=== PATIENT | female | born 1995 | race Caucasian/White ===

== ENCOUNTER 2016-11-16 11:57 | Observation (INO) | payer BC ==
[2016-11-16] MEDS ORDERED: DUONEB 0.5-3 MG/3 ml Neb IH ONE ×3 (12:00→16:00)
--- NOTE | 2016-11-16 12:13 | ERPHSYRPT ---
- History of Present Illness Time Seen by Provider: 11/16/16 11:58 Source: patient Exam Limitations: no limitations Patient Subjective Stated Complaint: sob increased since last night Triage Nursing Assessment: pt states sob started last night and got worse today. [facility] her [facility] here. audible wheezes noted. resp slow and deep. 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 barky cough Timing/Duration: yesterday Activities at Onset: other (anxiety) Severity of Dyspnea-Max: moderate Severity of Dyspnea-Current: moderate Possible Cause: unknown cause Modifying Factors: Improves With: activity Associated Symptoms: chest pain/discomfort Allergies/Adverse Reactions: Sulfa (Sulfonamide Antibiotics) Allergy (Severe, Verified 11/16/16 12:03) Hives Home Medications: Albuterol Sulfate [Proair Hfa] 1 gm IH UD 06/07/16 [History] Hx Tetanus, Diphtheria Vaccination/Date Given: Yes Hx Influenza Vaccination/Date Given: No Hx Pneumococcal Vaccination/Date Given: No Immunizations Up to Date: Yes - Review of Systems Constitutional: No Symptoms Eyes: No Symptoms Ears, Nose, & Throat: No Symptoms Respiratory: Dyspnea, Wheezing Cardiac: Chest Pain Abdominal/Gastrointestinal: No Symptoms Genitourinary Symptoms: No Symptoms Musculoskeletal: No Symptoms Skin: No Symptoms Neurological: No Symptoms Psychological: No Symptoms Endocrine: No Symptoms Hematologic/Lymphatic: No Symptoms Immunological/Allergic: No Symptoms - Past Medical History Pertinent Past Medical History: Yes Respiratory History: Asthma - Past Surgical History Past Surgical History: Yes Other Surgical History: endoscopy. wisdom teeth - Social History Smoking Status: Never smoker Exposure to second hand smoke: Yes Drug Use: none Patient Lives Alone: No - Nursing Vital Signs Nursing Vital Signs: Initial Vital Signs Temperature 98.0 F Temperature Source Oral Pulse Rate 111 Respiratory Rate 18 Blood Pressure [Right Arm] 105/78 Pain Intensity 0 - Physical Exam General Appearance: moderate distress Eye Exam: eyes nml inspection Ears, Nose, Throat Exam: normal ENT inspection, normal pharynx Neck Exam: normal inspection, non-tender, supple, full range of motion Respiratory Exam: airway intact, wheezing Cardiovascular/Chest Exam: normal heart sounds, regular rate/rhythm, normal peripheral pulses Abdominal/Gastrointestinal Exam: soft, normal bowel sounds Extremity Exam: non-tender, normal range of motion, normal inspection, normal capillary refill Neurologic Exam: alert, oriented x 3, cooperative Skin Exam: normal color, warm, dry SpO2 Interpretation: normal SpO2: 95 Oxygen Delivery: Room Air - Course Nursing assessment & vital signs reviewed: Yes - Radiology Exams Chest X-ray Interpretation: Teleradiologist Report, Negative Ordered Tests: Active Orders 24 hr Category Date Time Status IV Insertion STAT Care 11/16/16 12:07 Active CHEST 1 VIEW (PORTABLE) Stat Exams 11/16/16 12:52 Completed ARTERIAL BLOOD GASES Stat Lab 11/16/16 12:34 Completed CBC W DIFF Stat Lab 11/16/16 12:50 Completed CMP Stat Lab 11/16/16 12:50 Completed D-DIMER QUANTITATION Stat Lab 11/16/16 12:50 Completed HCG,QUALITATIVE SERUM Stat Lab 11/16/16 13:26 Completed Respiratory Nebulizer STAT RT 11/16/16 12:25 Completed Medication Summary Discontinued Medications Generic Name Dose Route Start Last Admin Trade Name Freq PRN Reason Stop Dose Admin Albuterol/Ipratropium 3 ml 11/16/16 12:25 11/16/16 12:05 Duoneb 0.5-3 Mg/3 Ml Neb IH 11/16/16 12:26 3 ml STAT ONE Administration Lorazepam 1 mg 11/16/16 12:19 11/16/16 12:25 Ativan 2 Mg/1 Ml Vial IV 11/16/16 12:20 1 mg STAT ONE Administration Lorazepam Confirm 11/16/16 12:23 Ativan 2 Mg/1 Ml Vial Administered 11/16/16 12:24 Dose 2 mg .ROUTE .STK-MED ONE Methylprednisolone Sodium Succinate 125 mg 11/16/16 12:16 11/16/16 12:25 Solu-Medrol 125 Mg IV 11/16/16 12:17 125 mg STAT ONE Administration Methylprednisolone Sodium Succinate Confirm 11/16/16 12:23 Solu-Medrol 125 Mg Administered 11/16/16 12:24 Dose 125 mg .ROUTE .STK-MED ONE Lab/Rad Data: Laboratory Result Diagrams 11/16/16 12:50 11/16/16 12:50 Laboratory Results 11/16/16 11/16/16 11/16/16 Range/Units 12:50 12:50 12:50 WBC 13.7 H (4.0-10.5) K/mm3 RBC 4.88 (4.1-5.4) M/mm3 Hgb 13.9 (12.0-16.0) gm/dl Hct 41.9 (35-47) % MCV 85.9 (78-100) fl MCH 28.5 (26-32) pg MCHC 33.2 (32-36) g/dl RDW 12.8 (11.5-14.0) % Plt Count 324 (150-450) K/mm3 MPV 11.2 H (6-9.5) fl Gran % 69.2 H (36.0-66.0) % Lymphocytes % 21.1 L (24.0-44.0) % Monocytes % 4.4 (0.0-12.0) % Eosinophils % 5.2 H (0.00-5.0) % Basophils % 0.1 (0.0-0.4) % Basophils # 0.02 (0-0.4) D-Dimer < 215.00 (0.00-500.00) ng/mL Puncture Site pCO2 (35-45) mmHg pO2 (75-100) mmHg Base Excess (-2.0-2.0) O2 Saturation (94-100) g/dF ABG pH (7.35-7.45) ABG HCO3 (22-28) ABG O2 Sat (Measured) (95-100) % Jose Test A-a Gradient a/A Ratio Hemoglobin Carboxyhemoglobin (0.0-6.9) % THgb Methemoglobin (1.4-1.5) % Potassium 3.9 (3.5-5.1) Temperature C POC O2 Flow Rate % Sodium 141 (136-145) mEq/L Chloride 106 (98-107) mEq/L Carbon Dioxide 24.3 (21-32) mEq/L Anion Gap 14.4 (5-15) MEQ/L BUN 9 (9-20) mg/dL Creatinine 0.69 (0.55-1.30) mg/dl Estimated GFR > 60 ML/MIN Glucose 95 (70-110) MG/DL Calcium 8.9 (8.5-10.1) mg/dL Total Bilirubin 0.20 (0.2-1.0) mg/dL AST 14 L (15-37) U/L ALT 19 (12-78) U/L Alkaline Phosphatase 46 (46-116) U/L Serum Total Protein 7.3 (6.4-8.2) gm/dL Albumin 3.3 L (3.4-5.0) g/dL // Range/Units 12:34 WBC (4.0-10.5) K/mm3 RBC (4.1-5.4) M/mm3 Hgb (12.0-16.0) gm/dl Hct (35-47) % MCV (78-100) fl MCH (26-32) pg MCHC (32-36) g/dl RDW (11.5-14.0) % Plt Count (150-450) K/mm3 MPV (6-9.5) fl Gran % (36.0-66.0) % Lymphocytes % (24.0-44.0) % Monocytes % (0.0-12.0) % Eosinophils % (0.00-5.0) % Basophils % (0.0-0.4) % Basophils # (0-0.4) D-Dimer (0.00-500.00) ng/mL Puncture Site RIGHT RADIAL pCO2 36 (35-45) mmHg pO2 62 L (75-100) mmHg Base Excess -0.1 (-2.0-2.0) O2 Saturation 94.0 (94-100) g/dF ABG pH 7.43 (7.35-7.45) ABG HCO3 23.9 (22-28) ABG O2 Sat (Measured) 96.6 (95-100) % Jose Test YES A-a Gradient 43 a/A Ratio 0.59 Hemoglobin 12.9 Carboxyhemoglobin 1.8 (0.0-6.9) % THgb Methemoglobin 0.9 L (1.4-1.5) % Potassium 3.7 (3.5-5.1) Temperature 37.0 C POC O2 Flow Rate 21 % Sodium (136-145) mEq/L Chloride (98-107) mEq/L Carbon Dioxide (21-32) mEq/L Anion Gap (5-15) MEQ/L BUN (9-20) mg/dL Creatinine (0.55-1.30) mg/dl Estimated GFR ML/MIN Glucose (70-110) MG/DL Calcium (8.5-10.1) mg/dL Total Bilirubin (0.2-1.0) mg/dL AST (15-37) U/L ALT (12-78) U/L Alkaline Phosphatase (46-116) U/L Serum Total Protein (6.4-8.2) gm/dL Albumin (3.4-5.0) g/dL - Progress Progress: re-examined, unchanged Air Movement: good Progress Note: 11/16/16 12:16 Much improved after Duoneb Rx. Blood Culture(s) Obtained: No Antibiotics given: Yes, No Discussed with : [facility] Will see patient in: hospital (observation) Counseled pt/family regarding: diagnosis, need for follow-up, rad results - Departure Time of Disposition: 14:00 Departure Disposition: Observation Clinical Impression: Bronchospastic airway disease, Hypoxemia Condition: Stable Critical Care Time: Yes Critical Care Time(excluding separately billable procedures): 75-104 minutes Referrals: NICK SEGURA NP [Primary Care Provider] -
[2016-11-16] MEDS ORDERED: solu-MEDROL 125 MG IV ONE (12:16)
[2016-11-16] MEDS ORDERED: Ativan 2 MG/1 ML VIAL IV ONE (12:19)
[2016-11-16] MEDS ORDERED: solu-MEDROL 125 MG ONE (12:23)
[2016-11-16] MEDS ORDERED: Ativan 2 MG/1 ML VIAL ONE (12:23)
[2016-11-16 12:35] LABS: A-aADO2 43; ARTERIAL BLD GAS O2 SATURATION 96.6 % (95-100); ARTERIAL BLOOD GAS BASE EXCESS -0.1 (-2.0-2.0); ARTERIAL BLOOD GAS FIO2 21 %; ARTERIAL BLOOD GAS PO2 62 mmHg (75-100); ARTERIAL BLOOD GAS pH 7.43 (7.35-7.45)
[2016-11-16 12:36] LABS: ALLEN TEST OK? YES
[2016-11-16 13:16] LABS: BASOPHIL % 0.1 % (0.0-0.4); Eosinophil % 5.2 % (0.00-5.0); Granulocytes % 69.2 % (36.0-66.0); Lymphocytes % 21.1 % (24.0-44.0); Mean Cell Volume 85.9 fl (78-100); Mean Corpuscular Hemoglobin 28.5 pg (26-32); Mean Platelet Volume 11.2 fl (6-9.5); Monocytes % 4.4 % (0.0-12.0); Platelet Count 324 K/mm3 (150-450); Red Blood Count 4.88 M/mm3 (4.1-5.4); Red Cell Distribution Width 12.8 % (11.5-14.0); White Blood Count 13.7 K/mm3 (4.0-10.5)
--- NOTE | 2016-11-16 13:17 | XRAY ---
Indication: Short of breath. History of asthma. Comparison: June 07, 2016. Portable chest again demonstrates normal heart, lungs, and bony thorax.
[2016-11-16 13:53] LABS: ALBUMIN 3.3 g/dL (3.4-5.0); ALKALINE PHOSPHATASE 46 U/L (46-116); ANION GAP 14.4 MEQ/L (5-15); BLOOD UREA NITROGEN 9 mg/dL (9-20); CHLORIDE 106 mEq/L (98-107); Carbon Dioxide 24.3 mEq/L (21-32); Glucose 95 MG/DL (70-110); Potassium 3.9 mEq/L (3.5-5.1); SGOT/AST 14 U/L (15-37); SGPT/ALT 19 U/L (12-78); SODIUM 141 mEq/L (136-145); Total Protein 7.3 gm/dL (6.4-8.2)
[2016-11-16] MEDS ORDERED: ROCEPHIN 1 Gm-D5w 50 ml Bag** 1 G/50 ML IVPB IV STA (14:20)
[2016-11-16] MEDS: PROTONIX 40 MG IV IV SCH (16:03)
[2016-11-16] MEDS: DUONEB 0.5-3 MG/3 ml Neb IH SCH ×2 (16:03→19:43)
[2016-11-16] MEDS ORDERED: Ativan 2 MG/1 ML VIAL IV PRN (17:36)
--- NOTE | 2016-11-16 17:40 | PCM.HP ---
History of Present Illness - Chief Complaint Chief Complaint: SOB, hypoxemia History of Present Illness: is a 21 year old female with a history of asthma who reports to the ER with a 1 day history of cough, congestion and severe shortness of breath. She is very anxious and feels like she can't take a deep breath, she is requiring oxygen. She has a strong family history of thromboembolism. - Review of Systems Constitutional: No Symptoms Respiratory: Cough, Short Of Breath, Wheezing Cardiac: No Chest Pain, No Edema, No Syncope Skin: No Rash Psychological: Anxiety, No Drug Abuse, No Suicidal Ideations, No Homicidal Ideations, No Hallucinations All Other Systems: Reviewed and Negative Medications & Allergies Home Medications: Home Medication List Albuterol Sulfate [Proair Hfa] 1 gm IH UD 06/07/16 [History Confirmed 11/16/16] Budesonide 0.5 mg/2 ml [Pulmicort 0.5 mg/2 ml Respules] 1 neb IH BID 11/16 [History Confirmed 11/16/16] x-[id number]-Oig Estr/Ethin Estra [Seasonique 0.15-0.03-0.01 Tab] 1 tablet PO DAILY 11/16/16 [History Confirmed 11/16/16] Allergies/Adverse Reactions: Allergies Allergy/AdvReac Type Severity Reaction Status Date / Time Sulfa (Sulfonamide Allergy Severe Hives Verified 11/16/16 16:22 Antibiotics) - Past Medical History Past Medical History: Yes Respiratory History: Asthma - Female History Hx Last Menstrual Period: 06/12/11 Are you now?: No - Past Surgical History Past Surgical History: Yes Other Surgical History: endoscopy. wisdom teeth - Social History Smoking Status: Former smoker How long have you smoked: 2.5 years Exposure to second hand smoke: Yes Alcohol: None Drug Use: none - Physical Exam Vital Signs: Vital Signs - 24 hr Temp Pulse Resp BP Pulse Ox 11/16/16 16:51 118 H 20 95 11/16/16 15:41 98.1 F 114 H 20 117/77 94 L 11/16/16 14:16 95 11/16/16 13:27 111 H 18 105/78 98 11/16/16 12:25 120 H 18 97 11/16/16 11:58 98.0 F 133 H 20 136/79 95 Oxygen-Last 24 hours O2 Percentage 2 Liters = 28% O2 Percentage 2 Liters = 28% General Appearance: mild distress, anxiety Neurologic Exam: alert, oriented x 3, cooperative Respiratory Exam: wheezing, No respiratory distress, No accessory muscle use, No prolonged expirations, No crackles/rales, No rhonchi Cardiovascular Exam: regular rate/rhythm, normal heart sounds, normal peripheral pulses Gastrointestinal/Abdomen Exam: soft, normal bowel sounds, No tenderness, No mass Extremity Exam: normal inspection, normal range of motion, pelvis stable Skin Exam: normal color, warm, dry, No rash Results - Other Procedures and Tests Respiratory Therapy 11/16/16 19:00 Respiratory Nebulizer BID Respiratory Nebulizer Q4H Assessment/Plan (1) Status asthmaticus Current Visit: Yes Status: Acute Assessment & Plan: continue albuterol and IV solumedrol, was started on rocephin in ER Code(s): J45.902 - UNSPECIFIED ASTHMA WITH STATUS ASTHMATICUS (2) Anxiety Current Visit: Yes Status: Acute Assessment & Plan: prn ativan, patient reassured Code(s): F41.9 - ANXIETY DISORDER, UNSPECIFIED (3) Hypoxemia Current Visit: Yes Status: Acute Assessment & Plan: patient is saturating well on oxygen at this time, does not seem to have any indicators of impending respiratory failure but seems quite anxious at this time. d-dimer was negative Code(s): R09.02 - HYPOXEMIA
[2016-11-16] MEDS: solu-MEDROL 125 MG IV SCH ×2 (17:47→23:46)
[2016-11-16] MEDS: Tussionex Pennkinetic Susp PO PRN (18:26)
[2016-11-16] MEDS ORDERED: PULMICORT 0.5 MG/2 ML RESPULES IH ONE (19:42)
[2016-11-16] MEDS: PULMICORT 0.5 MG/2 ML RESPULES IH SCH (19:43)
[2016-11-16] MEDS: Ativan 2 MG/1 ML VIAL IV PRN (21:21)
[2016-11-16] MEDS: Atrovent 0.5MG NEBULE IH SCH (23:53)
[2016-11-16] MEDS: Xopenex 1.25 MG/0.5 ML UD NEBULE IH SCH (23:54)
[2016-11-17] MEDS: Ativan 2 MG/1 ML VIAL IV PRN ×4 (01:01→18:38)
[2016-11-17] MEDS: Atrovent 0.5MG NEBULE IH SCH ×6 (03:27→23:30)
[2016-11-17] MEDS: Xopenex 1.25 MG/0.5 ML UD NEBULE IH SCH ×6 (03:27→23:30)
[2016-11-17] MEDS: Tussionex Pennkinetic Susp PO PRN ×4 (03:45→18:38)
[2016-11-17 04:11] LABS: A-aADO2 165; ARTERIAL BLD GAS O2 SATURATION 98.8 % (95-100); ARTERIAL BLOOD GAS BASE EXCESS -5.7 (-2.0-2.0); ARTERIAL BLOOD GAS FIO2 40 %; ARTERIAL BLOOD GAS PO2 80 mmHg (75-100); ARTERIAL BLOOD GAS pH 7.37 (7.35-7.45)
[2016-11-17] MEDS ORDERED: solu-MEDROL 40 MG ONE (05:58)
[2016-11-17] MEDS ORDERED: solu-MEDROL 40 MG IV ONE (06:00)
[2016-11-17] MEDS: solu-MEDROL 40 MG IV SCH ×3 (06:29→18:38)
--- NOTE | 2016-11-17 07:26 | PCM.NOTE ---
Date and Time: 11/17/16723 Subjective Assessment: patient reports she is feeling better this morning than yesterday, she is still requiring 5L oxygen but she is playing games on her phone and speaking in full sentences. she is very concerned about a dermatology appt in [place] this am , has a persistent abdominal rash that has been treated multiple different ways for tinea Objective Exam General Appearance: no apparent distress, alert Respiratory Exam: wheezing Cardiovascular Exam: regular rate/rhythm, normal heart sounds Gastrointestinal/Abdomen Exam: soft, No tenderness, No mass Extremity Exam: normal inspection, normal range of motion OBJECTIVE DATA Vital Signs: Vital Signs - 24 hr Temp Pulse Resp BP Pulse Ox 11/17/16 04:26 98.2 F 130 H 22 121/60 95 11/17/16 03:27 132 H 30 H 87 L 11/17/16 03:00 110 H 21 106/63 93 L 11/17/16 00:55 160 H 24 124/52 91 L 11/17/16 00:00 98.0 F 121 H 21 124/52 93 L 11/16/16 23:53 125 H 23 94 L 11/16/16 20:00 98.2 F 149 H 23 117/77 92 L 11/16/16 19:43 127 H 23 92 L 11/16/16 16:51 118 H 20 95 11/16/16 15:41 98.1 F 114 H 20 117/77 94 L 11/16/16 14:16 95 11/16/16 13:27 111 H 18 105/78 98 11/16/16 12:25 120 H 18 97 11/16/16 11:58 98.0 F 133 H 20 136/79 95 Oxygen-Last 24 hours O2 Percentage 5 Liters = 40% O2 Percentage 5 Liters = 40% O2 Percentage 3 Liters = 32% O2 Percentage 3 Liters = 32% O2 Percentage 2 Liters = 28% O2 Percentage 2 Liters = 28% O2 Percentage 2 Liters = 28% Pain Assessment - Last Documented Pain Intensity 1 Pain Scale Used FLACC Intake and Output: Intake & Output 11/14/16 11/15/16 11/16/16 11/17/16 11:59 11:59 11:59 11:59 Intake Total 350 Output Total 250 Balance 100 Weight 54.567 kg Lab Results: Lab Results-Last 24 Hours 06/08/17 Range/Units 04:04 Puncture Site RIGHT BRACHIAL pCO2 32 L (35-45) mmHg pO2 80 (75-100) mmHg Base Excess -5.7 L (-2.0-2.0) O2 Saturation 96.2 (94-100) g/dF ABG pH 7.37 (7.35-7.45) ABG HCO3 18.5 L (22-28) ABG O2 Sat (Measured) 98.8 (95-100) % Jose Test NOT APPLICABLE A-a Gradient 165 a/A Ratio 0.33 Hemoglobin 13.9 Carboxyhemoglobin 1.6 (0.0-6.9) % THgb Methemoglobin 1.0 L (1.4-1.5) % Potassium 3.4 L (3.5-5.1) Temperature 37.0 C POC O2 Flow Rate 40 % Assessment/Plan (1) Status asthmaticus Current Visit: Yes Status: Acute Assessment & Plan: continue nebulizer treatments and IV steroids, will continue to treat anxiety and tachycardia with ativan prn. Dr Winters consulted Code(s): J45.902 - UNSPECIFIED ASTHMA WITH STATUS ASTHMATICUS (2) Anxiety Current Visit: Yes Status: Acute Code(s): F41.9 - ANXIETY DISORDER, UNSPECIFIED (3) Hypoxemia Current Visit: Yes Status: Acute Code(s): R09.02 - HYPOXEMIA
[2016-11-17] MEDS: PULMICORT 0.5 MG/2 ML RESPULES IH SCH (08:28)
[2016-11-17] MEDS: PROTONIX 40 MG IV IV SCH (10:58)
[2016-11-17] MEDS: ROCEPHIN 1 Gm-D5w 50 ml Bag** 1 G/50 ML IVPB IV SCH (10:58)
[2016-11-17] MEDS ORDERED: Sodium Chloride 3 ML UD NEBULES IH ONE (12:13)
--- NOTE | 2016-11-17 12:57 | CONS ---
CONSULT DATE: 11/17/16 REASON FOR CONSULTATION: Evaluation of shortness of breath, asthma exacerbation. HISTORY OF PRESENT ILLNESS: Ms. Pavon is a 21 y/o woman with history of bronchial asthma, suboptimally controlled, who reportedly was in usual state of health up until about 4 days ago. Patient reported that she started getting upper respiratory infection-like symptoms that increased bronchospasm. Patient was seen by Dr. Guillermo yesterday and was admitted for further care. I received a call this morning reporting patient was tachycardic and having significant difficulty in breathing. She is being treated with IV steroids along with bronchodilators. She was also noted to have tachycardia which has improved with heart rate down to 110 or so now. At the time of my evaluation, patient is awake, able to speak full sentences without any obvious respiratory distress. She reports being an asthmatic all her life. She uses albuterol and Pulmicort on a regular bases. She has however had flare-ups pretty frequently with last hospitalization in June of this year for asthma exacerbation. PAST MEDICAL HISTORY: Positive for bronchial asthma. Patient denies any cardiac problems or common medical problems. PERSONAL AND SOCIAL HISTORY: Patient is a nonsmoker. She works at the [employer]. ALLERGIES: SULFA. CURRENT MEDICATIONS: Home and current medications are reviewed. PAST SURGICAL HISTORY: No recent surgeries. PHYSICAL EXAMINATION: This is a young girl who appears comfortable. Vital signs are noted. HEENT: Normocephalic. Oral exam is unremarkable. CVS: 1st and 2nd heart sounds normal, regular rhythm with tachycardia. RESPIRATORY: Shows diminished breath sounds. Bilateral rhonchi are heard. ABDOMEN: Soft. EXTREMITIES: No edema is noted. The pH is 7.37, PCO2 32, and PO2 80. Sodium 141, potassium 3.9, chloride 106, bicarb 24, glucose 95, BUN 9, creatinine 0.7. D-dimer is negative. PO2 was 62 on room air. WBC 13.47, Hgb 13.9, Hct 41.9, and platelets 324. Eosinophil count was 5.2% with absolute eosinophil count of close to 700. Chest x-ray showed no acute infiltrate. ASSESSMENT: 1. THIS IS A 21 YEAR OLD GIRL ADMITTED WITH BRONCHIAL ASTHMA WITH ACUTE EXACERBATION. 2. ACUTE BRONCHITIS. 3. TACHYCARDIA APPEARS PHYSIOLOGIC AND EOSINOPHILIA. RECOMMENDATIONS: 1. Patient is doing well from pulmonary standpoint. Continue bronchodilators with Xopenex at half strength due to tachycardia. 2. Will benefit from inhaled corticosteroid plus long-acting beta agonist combination therapy. Hence, will discontinue Pulmicort and start patient on Advair 500/50 1 inhalation bid. 3. Will obtain a PFT in outpatient setting along with compliance and peak flow monitoring. If patient continues to experience exacerbation, she may be a candidate for infusion therapy due to eosinophilia. This will again have to be reassessed in outpatient stable setting. I will be available if needed over the weekend. Otherwise, follow in outpatient setting. Thank you for allowing me to participate in the care of this patient.
[2016-11-17] MEDS: Sodium Chloride 3 ML UD NEBULES IH PRN (15:38)
[2016-11-17] MEDS: Advair Hfa 230/21 Mcg COMMON CANISTER IH SCH (19:00)
[2016-11-18] MEDS: solu-MEDROL 40 MG IV SCH ×5 (00:09→23:50)
[2016-11-18] MEDS: Ativan 2 MG/1 ML VIAL IV PRN ×4 (00:10→22:10)
[2016-11-18] MEDS: Atrovent 0.5MG NEBULE IH SCH ×6 (03:31→22:38)
[2016-11-18] MEDS: Xopenex 1.25 MG/0.5 ML UD NEBULE IH SCH ×6 (03:32→22:38)
[2016-11-18] MEDS: Tussionex Pennkinetic Susp PO PRN ×4 (04:41→22:12)
[2016-11-18] MEDS: Sodium Chloride 3 ML UD NEBULES IH PRN ×4 (04:42→14:31)
[2016-11-18] MEDS: Advair Hfa 230/21 Mcg COMMON CANISTER IH SCH ×2 (06:51→19:11)
--- NOTE | 2016-11-18 07:58 | PCM.NOTE ---
Date and Time: 11/18/16 0755 Subjective Assessment: patient is feeling better this morning, she has been maintaining oxygen sats well overnight on 2L nasal cannula. she states her breathing feels improved, tolerating po intake Objective Exam General Appearance: no apparent distress Respiratory Exam: prolonged expirations, wheezing, No respiratory distress Cardiovascular Exam: regular rate/rhythm, normal heart sounds Gastrointestinal/Abdomen Exam: soft, No tenderness, No mass Extremity Exam: normal inspection, normal range of motion OBJECTIVE DATA Vital Signs: Vital Signs - 24 hr Temp Pulse Resp BP Pulse Ox 11/18/16 06:56 111 H 18 92 L 11/18/16 03:54 97.7 F 135 H 20 115/59 95 11/18/16 03:32 111 H 17 98 11/18/16 00:15 97.8 F 119 H 20 118/56 99 11/17/16 23:30 119 H 18 92 L 11/17/16 20:00 98.2 F 123 H 20 109/63 95 11/17/16 19:01 126 H 20 96 11/17/16 16:53 98 11/17/16 16:38 123 H 20 96 11/17/16 16:00 98.3 F 133 H 17 115/60 99 11/17/16 15:41 118 H 22 97 11/17/16 12:14 113 H 20 96 11/17/16 12:00 98.1 F 115 H 21 110/62 97 11/17/16 08:30 124 H 24 92 L 11/17/16 08:12 121 H 25 H 117/64 95 Oxygen-Last 24 hours O2 Percentage 2 Liters = 28% O2 Percentage 2 Liters = 28% O2 Percentage 2 Liters = 28% O2 Percentage 3 Liters = 32% O2 Percentage 3 Liters = 32% O2 Percentage 5 Liters = 40% Pain Assessment - Last Documented Pain Intensity 1 Pain Scale Used 0-10 Pain Scale Intake and Output: Intake & Output 11/15/16 11/16/16 11/17/16 11/18/16 11:59 11:59 11:59 11:59 Intake Total 350 1340 Output Total 250 Balance 100 1340 Weight 54.567 kg Lab Results: Lab Results-Last 24 Hours 11/17/16 Range/Units 14:07 Urine Opiates Level POS. (NEGATIVE) Ur Methadone NEG. (NEGATIVE) Urine Barbiturates NEG. (NEGATIVE) Ur Phencyclidine (PCP) NEG. (NEGATIVE) Urine Amphetamine NEG. (NEGATIVE) U Benzodiazepine Level NEG. (NEGATIVE) Urine Cocaine NEG. (NEGATIVE) Urine Marijuana (THC) POS. (NEGATIVE) Assessment/Plan (1) Status asthmaticus Current Visit: Yes Status: Acute Assessment & Plan: continue current management, if able to wean from oxygen and maintains sats this am transfer to floor, if able to wean oxygen likely can go home tomorrow with new rx for advair per Dr Winters to replace pulmicort. will need prednisone and xopenex for home due to tachycardia concerns. Code(s): J45.902 - UNSPECIFIED ASTHMA WITH STATUS ASTHMATICUS (2) Anxiety Current Visit: Yes Status: Acute Code(s): F41.9 - ANXIETY DISORDER, UNSPECIFIED (3) Hypoxemia Current Visit: Yes Status: Acute Code(s): R09.02 - HYPOXEMIA (4) Tinea corporis Current Visit: Yes Status: Acute Assessment & Plan: has tried and failed multiple regimens, recommend we try her on po terbinafine x 14 days at the time of discharge Code(s): B35.4 - TINEA CORPORIS
[2016-11-18] MEDS: PROTONIX 40 MG IV IV SCH (10:47)
[2016-11-18] MEDS: ROCEPHIN 1 Gm-D5w 50 ml Bag** 1 G/50 ML IVPB IV SCH (10:47)
[2016-11-19] MEDS: Atrovent 0.5MG NEBULE IH SCH ×2 (02:55→06:51)
[2016-11-19] MEDS: Xopenex 1.25 MG/0.5 ML UD NEBULE IH SCH ×2 (02:55→06:51)
[2016-11-19] MEDS: solu-MEDROL 40 MG IV SCH (05:43)
[2016-11-19] MEDS: Advair Hfa 230/21 Mcg COMMON CANISTER IH SCH (06:55)
[2016-11-19 08:10] VITALS: BP 124/84; O2SAT 91
[2016-11-19 09:12] VITALS: PULSE 100
--- NOTE | 2016-11-19 09:33 | PCM.DS ---
Discharge Summary Date of Admission: 11/16/16 15:15 Date of Discharge: 11/19/16 Admitting Physician: CHERELLE GUILLERMO Consults: Consults on Case 11/17/16 08:00 Consult Pulmonology ROUTINE Primary Care Provider: NICK KUMAR NONTCosme Allergies Allergies Sulfa (Sulfonamide Antibiotics) Allergy (Severe, Verified 11/16/16 16:22) [facility] Summary - Hospital Course Hospital Course: Nikky has history of asthma with hospitalization last in June for asthma exacerbation and had severe exacerbation requiring significant oxygen supplementation iv steroids and was given iv antibiotics as well. She had significant tachycardia with the nebs that was sinus and resolved with resting and sleeping the day prior to discharge with the better control of her breathing. She was seen by Dr. Winters pulmonology while inpatient. She was admitted and followed by Dr. Guillermo and I saw her on the day of discharge and she was breathing much better no distress on room air and her tachycardia had improved on telemetry at rest but was still elevated with exertion she was walking on her own without significant shortness of breath. (She was worried about a rash that was present for 6 months and was diagnosed as ring worm however it appears she reacts to the adhesive from the telemetry patches and the annular white rings directly mirror the red rings she now has from telemetry patches that are removed) reassurance was given for this. Of note her urine tox screen was positive for THC and opiates she denies any drug abuse and said the marijuana was rare and a long time ago. Importance of not smoking anything or inhaling anything was made very clear with the potential deadly reaction with her asthma. - Vitals & Intake/Output Vital Signs: Vital Signs Temperature 98.6 F 11/19/16 08:00 Pulse Rate 100 H 11/19/16 09:12 Respiratory Rate 20 11/19/16 08:00 Blood Pressure 124/84 11/19/16 08:00 O2 Sat by Pulse Oximetry 91 L 11/19/16 08:00 Oxygen-Last Documented O2 Percentage 2 Liters = 28% Intake & Output: Intake & Output 11/16/16 11/17/16 11/18/16 11/19/16 11:59 11:59 11:59 11:59 Intake Total 350 1340 1160 Output Total 250 Balance 100 1340 1160 Weight 54.567 kg - Lab Result Diagrams: 11/16/16 12:50 11/16/16 12:50 - Procedures and Test Procedures and Tests throughout Hospitalization: Therapy Orders & Screens 11/16/16 15:28 Oxygen NASAL CANNULA 2 lpm Comment: Diagnosis: Shortness of Breath 11/16/16 16:17 RT Screen per Nursing Assess ONCE Comment: Protocol Order Physician Instructions: Greater than 3 points order RT Admission Screen Reason For Exam: Triggered on Admission Diagnosis: SOB, hypoxemia Diagnosis: SOB, hypoxemia Pneumonia: No Home O2: No Asthma: Yes CHF: No Home CPAP/BIPAP: No Home Nebs/MDI: Yes Total Points: 9 11/16/16 19:00 Respiratory Nebulizer BID Comment: PULMICORT BID Diagnosis: SOB, hypoxemia Respiratory Nebulizer Q4H Comment: DUONEB Q4 Diagnosis: SOB, hypoxemia 11/16/16 23:00 Respiratory Nebulizer Q4H Comment: XOPENEX 1.25MG/ATROVENT Q4 HOURS Diagnosis: SOB, hypoxemia 11/17/16 13:55 RT Miscellaneous Order ROUTINE Comment: Physician Instructions: SCHEDULE PFT 1 WEEK AFTER DISCHARGE Reason For Exam: ASTHMA Diagnosis: SOB, hypoxemia 11/17/16 19:00 Respiratory MDI BID Comment: ADVAIR 230/21 BID Diagnosis: SOB, hypoxemia 11/18/16 07:00 Respiratory Nebulizer Q4H Comment: XOPENEX 06.25MG/ATROVENT Q4 Diagnosis: SOB, hypoxemia Discharge Exam General Appearance: no apparent distress Neurologic Exam: alert, oriented x 3, cooperative Skin Exam: warm, dry, other (her areas of concern are very faint circules of annular hypopigmentation at the site of likely telemetry stickers from her hospitalization in June. She has similar red rings now from the stickers used here from her reaction to the adhesive.) Eye Exam: No scleral icterus, No pale conjunctivae Ears, Nose, Throat Exam: moist mucous membranes Neck Exam: normal inspection, non-tender, supple Respiratory Exam: lungs clear, No respiratory distress Cardiovascular Exam: tachycardia, No murmur, No edema Gastrointestinal/Abdomen Exam: soft, normal bowel sounds, No tenderness, No distention, No mass Extremity Exam: normal inspection, No pedal edema, No swelling Final Diagnosis/Problem List - Final Discharge Diagnosis/Problem (1) Status asthmaticus Status: Acute Assessment & Plan: changed to advair per Dr. Singh recommendations and Rx for xopenex nebs given her tachycardia with the albuterol nebs (she was also tachycardic to a slightly less extent with the xopenex nebs) (2) Anxiety Status: Acute (3) Bronchospastic airway disease Status: Acute (4) Hypoxemia Status: Resolved - Discharge Discharge Date: 11/19/16 Disposition: Home, Self-Care Condition: Stable Prescriptions: New Fluticasone/Salmeterol [Advair 500-50 Diskus] 1 each IH BID #1 disk.w.dev Prednisone 10 mg [Deltasone 10 mg] 10 mg PO DAILY #0 tablet Levalbuterol HCl 1.25 MG/0.5M* [Xopenex 1.25 MG/0.5 ML UD NEBULE] 1.25 mg IH Q4H PRN #50 neb PRN Reason: Shortness Of Breath/Wheezing Famotidine 20 mg [Pepcid 20 MG] 20 mg PO BID #30 tablet Continue Albuterol Sulfate [Proair Hfa] 1 gm IH UD [id number] Estr/Ethin Estra [Seasonique 0.15-0.03-0.01 Tab] 1 tablet PO DAILY Discontinued Budesonide 0.5 mg/2 ml [Pulmicort 0.5 mg/2 ml Respules] 1 neb IH BID Instructions: Asthma -- Adult, Bronchitis, Anxiety -- Adult Additional Instructions: Pulmonary Function Test on 11/25/16 at 3:40. No breathing treatments 4 hours prior to procedure. Follow up with: AYLIN WINTERS [ACTIVE STAFF] - Call for Appointment (follow up in two weeks after discharge ) NICK SEGURA NP [Primary Care Provider] - Call for Appointment Forms: Discharge Instructions, Work/School Release Form
== END 2016-11-19 10:50 | disposition home or self-care (01) ==
LOC: ED 11:57 → ICU 15:15 → MED SURG 11-18 09:30
PROVIDERS: ADMIT Family Medicine; ATTEND Family Medicine
DX: J45.902 Unspecified asthma with status asthmaticus (principal); F41.9 Anxiety disorder, unspecified; R09.02 Hypoxemia; J98.09 Other diseases of bronchus, not elsewhere classified; B35.4 Tinea corporis; Z79.899 Other long term (current) drug therapy; Z72.0 Tobacco use
CPT/HCPCS: 36000; 36415; 36600; 71010; 80053; 80307; 82375; 82803; 84703; 85025; 85379; 93268; 94640; 94760; 96365; 96374; 96375; 99285; G0378; J0696; J2060; J2920; J2930; A9270-GY

== ENCOUNTER 2018-05-08 13:39 | Emergency (ER) | payer BC ==
--- NOTE | 2018-05-08 15:03 | ERPHSYRPT ---
- History of Present Illness Time Seen by Provider: 05/08/18 14:55 Source: patient Exam Limitations: no limitations Patient Subjective Stated Complaint: Pt states "I am 7 weeks and I went to the bathroom and there was a little clop of blood and it was a deep red. " Triage Nursing Assessment: Pt alert and oriented X 3, skin pwd. PT ambulates with and upright steady gait, able to speak in clear full sentences. PT anxious. Physician History: 22-year-old white female 1 para 0 who states she is 7 weeks with last menstrual period March 20 an estimated date of confinement December 25. Patient states that she had a ultrasound approximately a week ago she states that today she noted a small amount of blood in her underwear and noticed blood when she was wiping from the vaginal area. She denies any abdominal pain no nausea no vomiting no other complaints. Past medical history includes asthma. Past surgical history includes endoscopy and wisdom teeth. Social history patient denies tobacco alcohol or illicit drug use. Timing/Duration: today Severity: mild Modifying Factors: Improves With: nothing Associated Symptoms: other (vaginal spotting), No nausea, No vomiting, No abdominal pain, No shortness of breath, No heartburn, No diaphoresis, No cough, No chills, No chest pain, No fever, No headaches, No loss of appetite, No malaise, No rash, No syncope, No seizure, No weakness Allergies/Adverse Reactions: Sulfa (Sulfonamide Antibiotics) Allergy (Severe, Verified 11/16/16 16:22) Hives Home Medications: Albuterol Sulfate [Proair Hfa] 1 gm IH UD 06/07/16 [History] Hx Tetanus, Diphtheria Vaccination/Date Given: Yes Hx Influenza Vaccination/Date Given: Yes Hx Pneumococcal Vaccination/Date Given: No Immunizations Up to Date: Yes - Review of Systems Constitutional: No Fever, No Chills Eyes: No Symptoms Ears, Nose, & Throat: No Symptoms Respiratory: No Cough, No Dyspnea Cardiac: No Chest Pain, No Edema, No Syncope Abdominal/Gastrointestinal: No Abdominal Pain, No Nausea, No Vomiting, No Diarrhea Genitourinary Symptoms: (Patient states she is 7 weeks ), Vaginal Bleeding Musculoskeletal: No Back Pain, No Neck Pain Skin: No Rash Neurological: No Dizziness, No Focal Weakness, No Sensory Changes Psychological: No Symptoms Endocrine: No Symptoms All Other Systems: Reviewed and Negative - Past Medical History Pertinent Past Medical History: Yes Respiratory History: Asthma - Past Surgical History Past Surgical History: Yes Other Surgical History: endoscopy. wisdom teeth - Social History Smoking Status: Former smoker How long have you smoked: 2.5 years Exposure to second hand smoke: Yes Drug Use: none Patient Lives Alone: Yes - Female History Hx Last Menstrual Period: 03/20/2018 Hx Now: Yes Expected Date of Delivery: 12/25/18 - Nursing Vital Signs Nursing Vital Signs: Initial Vital Signs Temperature 98.8 F 05/08/18 13:45 Pulse Rate 112 H 05/08/18 13:45 Respiratory Rate 20 05/08/18 13:45 Blood Pressure 138/73 05/08/18 13:45 O2 Sat by Pulse Oximetry 99 05/08/18 13:45 Pain Scale Pain Intensity 0 - Physical Exam General Appearance: no apparent distress Eye Exam: PERRL/EOMI, eyes nml inspection Ears, Nose, Throat Exam: normal ENT inspection, TMs normal, pharynx normal, moist mucous membranes Neck Exam: normal inspection, non-tender, supple, full range of motion Respiratory Exam: normal breath sounds, lungs clear, No respiratory distress Cardiovascular Exam: regular rate/rhythm, normal heart sounds, normal peripheral pulses Gastrointestinal/Abdomen Exam: soft, normal bowel sounds, No tenderness, No mass Pelvic Exam: normal external exam, other (pelvic examination: Normal female external, cervix is closed, no obvious bleeding.), No adnexal tenderness, No adnexal mass, No cervical motion tenderness Back Exam: normal inspection, normal range of motion, No CVA tenderness, No vertebral tenderness Extremity Exam: normal inspection, normal range of motion, pelvis stable Neurologic Exam: alert, oriented x 3, cooperative, 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 Single live intrauterine with demonstrated movement and cardiac activity the crown-rump length suggests a gestational age of 6 weeks 2 days with an estimated due date December 30, 2018 by size criteria. No abnormal fluid is within the lower uterine segment or cervical canal. 2. Incidental note of a corpus luteal cyst within the maternal left ovary. No free intraperitonel fluid is seen within the pelvis.) Ordered Tests: Active Orders 24 hr Category Date Time Status IV Insertion STAT Care 05/08/18 14:23 Active Pelvic Exam Assist STAT Care 05/08/18 15:32 Active OB <14 WKS 1ST GESTATION [US] Stat Exams 05/08/18 15:31 Completed CBC W DIFF Stat Lab 05/08/18 14:25 Completed CMP Stat Lab 05/08/18 14:25 Completed CULTURE,URINE Stat Lab 05/08/18 15:10 Received HCG, Quantitative (Inhouse) Stat Lab 05/08/18 14:25 Completed HCG,QUALITATIVE URINE Stat Lab 05/08/18 15:10 Completed Manual Differential NC Stat Lab 05/08/18 14:25 Completed UA W/RFX UR CULTURE Stat Lab 05/08/18 15:10 Completed Wet Prep Stat Lab 05/08/18 15:33 Completed Lab/Rad Data: Laboratory Result Diagrams 05/08/18 14:25 05/08/18 14:25 Laboratory Results 05/08/18 05/08/18 05/08/18 Range/Units 15:33 15:10 15:10 WBC (4.0-10.5) K/mm3 RBC (4.1-5.4) M/mm3 Hgb (12.0-16.0) gm/dl Hct (35-47) % MCV (78-100) fl MCH (26-32) pg MCHC (32-36) g/dl RDW (11.5-14.0) % Plt Count (150-450) K/mm3 MPV (6-9.5) fl Sodium (137-145) mmol/L Potassium (3.5-5.1) mmol/L Chloride (98-107) mmol/L Carbon Dioxide (22-30) mmol/L Anion Gap (5-15) MEQ/L BUN (7-17) mg/dL Creatinine (0.52-1.04) mg/dL Estimated GFR ML/MIN Glucose (74-106) mg/dL Calcium (8.4-10.2) mg/dL Total Bilirubin (0.2-1.3) mg/dL AST (14-36) U/L ALT (0-35) U/L Alkaline Phosphatase (38-126) U/L Serum Total Protein (6.3-8.2) g/dL Albumin (3.5-5.0) g/dL Beta HCG, Quant mIU/ml Urine Color YELLOW (YELLOW) Urine Appearance CLEAR (CLEAR) Urine pH 7.0 (5-6) Ur Specific [place] 1.015 (1.005-1.025) Urine Protein NEGATIVE (Negative) Urine Ketones NEGATIVE (NEGATIVE) Urine Blood MODERATE (0-5) Adria/ul Urine Nitrite NEGATIVE (NEGATIVE) Urine Bilirubin NEGATIVE (NEGATIVE) Urine Urobilinogen NEGATIVE (0-1) mg/dL Ur Leukocyte Esterase SMALL (NEGATIVE) Urine WBC (Auto) 3-5 (0-5) /HPF Urine RBC (Auto) NONE (0-2) /HPF U Epithel Cells (Auto) RARE (FEW) /HPF Urine Bacteria (Auto) RARE (NEGATIVE) /HPF Urine Mucus (Auto) SLIGHT (NEGATIVE) /HPF Urine Culture Reflexed YES (NO) Urine Glucose NEGATIVE (NEGATIVE) mg/dL Urine HCG, Qual POSITIVE (Negative) WBC (Wet Prep) Rare RBC (Wet Prep) None Seen Epi Cells (Wet Prep) Few Bacteria (Wet Prep) Moderate Clue Cells (Wet Prep) None Seen Trichomonas (Wet Prep) None Seen Budding Yeast (Wet Prp) None Seen ABO Group Rh Factor Antibody Screen (NEGATIVE) 05/08/18 05/08/18 05/08/18 Range/Units 14:40 14:25 14:25 WBC 8.4 (4.0-10.5) K/mm3 RBC 4.60 (4.1-5.4) M/mm3 Hgb 12.8 (12.0-16.0) gm/dl Hct 39.4 (35-47) % MCV 85.7 (78-100) fl MCH 27.8 (26-32) pg MCHC 32.5 (32-36) g/dl RDW 12.7 (11.5-14.0) % Plt Count 327 (150-450) K/mm3 MPV 10.3 H (6-9.5) fl Sodium 141 (137-145) mmol/L Potassium 3.6 (3.5-5.1) mmol/L Chloride 105 (98-107) mmol/L Carbon Dioxide 25 (22-30) mmol/L Anion Gap 14.4 (5-15) MEQ/L BUN 11 (7-17) mg/dL Creatinine 0.64 (0.52-1.04) mg/dL Estimated GFR > 60.0 ML/MIN Glucose 103 (74-106) mg/dL Calcium 9.4 (8.4-10.2) mg/dL Total Bilirubin 0.20 (0.2-1.3) mg/dL AST 19 (14-36) U/L ALT 16 (0-35) U/L Alkaline Phosphatase 67 (38-126) U/L Serum Total Protein 7.8 (6.3-8.2) g/dL Albumin 4.6 (3.5-5.0) g/dL Beta HCG, Quant 1352.0 mIU/ml Urine Color (YELLOW) Urine Appearance (CLEAR) Urine pH (5-6) Ur Specific [place] (1.005-1.025) Urine Protein (Negative) Urine Ketones (NEGATIVE) Urine Blood (0-5) Adria/ul Urine Nitrite (NEGATIVE) Urine Bilirubin (NEGATIVE) Urine Urobilinogen (0-1) mg/dL Ur Leukocyte Esterase (NEGATIVE) Urine WBC (Auto) (0-5) /HPF Urine RBC (Auto) (0-2) /HPF U Epithel Cells (Auto) (FEW) /HPF Urine Bacteria (Auto) (NEGATIVE) /HPF Urine Mucus (Auto) (NEGATIVE) /HPF Urine Culture Reflexed (NO) Urine Glucose (NEGATIVE) mg/dL Urine HCG, Qual (Negative) WBC (Wet Prep) RBC (Wet Prep) Epi Cells (Wet Prep) Bacteria (Wet Prep) Clue Cells (Wet Prep) Trichomonas (Wet Prep) Budding Yeast (Wet Prp) ABO Group A Rh Factor POSITIVE Antibody Screen POSITIVE (NEGATIVE) - Progress Progress: improved Progress Note: 05/08/18 16:03 Pelvic ultrasound: Interuterine 6 weeks 2 days Heart rate 99. No ovary abnormalities per radiology aide. 05/08/18 16:48 Patient appears to be stable. Vaginal examination normal female external genitalia. Cervix is closed. White discharge. No obvious bleeding. No adnexal tenderness. Patient apparently with A+ blood type with positive antibody screen will be sent to reference lab 05/08/18 18:13 - Departure Time of Disposition: 17:56 Departure Disposition: Home Clinical Impression: Vaginal bleeding, Early stage of Condition: Fair Critical Care Time: No Referrals: Provider,Unknown [Primary Care Provider] - Instructions: Threatened Miscarriage (DC) Additional Instructions: Return home. Nothing in your vagina. Follow-up with your COMPLIANCE ADVISOR physician. Call tomorrow to arrange follow-up appointment. Return for acute distress or for severe symptoms
[2018-05-08 15:14] LABS: Hematocrit 39.4 % (35-47); Hemoglobin 12.8 gm/dl (12.0-16.0); Mean Cell Volume 85.7 fl (78-100); Mean Corpuscular Hemoglobin 27.8 pg (26-32); Mean Corpuscular Hgb Concent. 32.5 g/dl (32-36); Mean Platelet Volume 10.3 fl (6-9.5); Platelet Count 327 K/mm3 (150-450); Red Cell Distribution Width 12.7 % (11.5-14.0); White Blood Count 8.4 K/mm3 (4.0-10.5)
[2018-05-08 15:25] LABS: Appearance CLEAR (CLEAR); Bilirubin NEGATIVE (NEGATIVE); Blood MODERATE Ery/ul (0-5); Glucose NEGATIVE (NEGATIVE); Ketones NEGATIVE (NEGATIVE); Leukocyte Esterase SMALL (NEGATIVE); Nitrite NEGATIVE (NEGATIVE); Protein,Urine Dip NEGATIVE (Negative); Specific Gravity 1.015 (1.005-1.025); Urobilinogen NEGATIVE mg/dL (0-1)
[2018-05-08 15:37] LABS: ALBUMIN 4.6 g/dL (3.5-5.0); ALKALINE PHOSPHATASE 67 U/L (38-126); ANION GAP 14.4 MEQ/L (5-15); BLOOD UREA NITROGEN 11 mg/dL (7-17); CHLORIDE 105 mmol/L (98-107); Calcium 9.4 mg/dL (8.4-10.2); Carbon Dioxide 25 mmol/L (22-30); Creatinine 1 0.64 mg/dL (0.52-1.04); Glucose 103 mg/dL (74-106); Potassium 3.6 mmol/L (3.5-5.1); SGOT/AST 19 U/L (14-36); SGPT/ALT 16 U/L (0-35); SODIUM 141 mmol/L (137-145); Total Protein 7.8 g/dL (6.3-8.2)
[2018-05-08 16:32] LABS: ABO TYPING A; RH TYPING POSITIVE
[2018-05-08 16:33] LABS: Antibody Screen POSITIVE (NEGATIVE)
--- NOTE | 2018-05-08 16:57 | XRAY ---
Exam: OB ultrasound less than 14 weeks from 05/08/2018. Indication: Positive test, vaginal spotting. Findings: Multiple transvaginal sonogram images were obtained in longitudinal and transverse planes. A normal positioned and shaped gestational sac is seen within the upper uterine segment. It contains a single live intrauterine pole which demonstrates a heart rate of 99 bpm. movement was seen by the technologist at the time of the scan. Average crown rump length is 5.1 mm consistent with a gestational age of 6 weeks 2 days, plus or - 0 weeks 4 days yielding an estimated due date of 12/30/2018 by size criteria. Both both maternal ovaries appear within normal limits. There appears to be a corpus luteal cyst within the left ovary measuring a maximum of about 2.1 cm in diameter. No free fluid is seen within the cul-de-sac or either pelvic adnexa. Impression: 1. Single live intrauterine with demonstrated movement and cardiac activity. The crown-rump length suggests a gestational age of 6 weeks 2 days with an estimated due date of 12/30/2018 by size criteria. No abnormal fluid is seen within the lower uterine segment or cervical canal. 2. Incidental note of a corpus luteal cyst within the maternal left ovary. 3. No free intraperitoneal fluid is seen within the pelvis.
[2018-05-08 17:25] VITALS: BP 102/62; PULSE 62
[2018-05-08 17:48] LABS: Bacteria Moderate; Clue Cells None Seen; Red Blood Cells None Seen; Trichomonas None Seen
[2018-05-08 17:49] LABS: White Blood Cells Rare
[2018-05-08 17:56] VITALS: O2SAT 99
[2018-05-09 03:49] LABS: BAND 1 % (0.0-2.0); Basophil 2 % (0.0-1.0); Eosinophil 4 % (0.00-3.0); Lymphocytes 41 % (24-44); Monocyte 6 % (0.0-12.0); Neutrophils 46 % (36.0-66.0); Total Cells Counted 100
[2018-05-09 03:53] LABS: Platelet Estimate NORMAL (NORMAL)
[2018-05-11 10:32] LABS: AB ID Interp Anti-M
== END 2018-05-08 18:08 | disposition home or self-care (01) ==
LOC: ED 13:39
DX: O46.91 Antepartum hemorrhage, unspecified, first trimester (principal); Z3A.01 Less than 8 weeks gestation of pregnancy
CPT/HCPCS: 36000; 36415; 76801; 80053; 81001; 84702; 84703; 85025; 86850; 86870; 86900; 86901; 87086; 87210; 87490; 87590; 99284

== ENCOUNTER 2018-05-09 12:14 | Emergency (ER) | payer BC ==
[2018-05-09] MEDS ORDERED: Sodium Chloride 0.9% 1000 ML 1,000 ML IV STA (12:37)
--- NOTE | 2018-05-09 12:43 | ERPHSYRPT ---
- History of Present Illness Time Seen by Provider: 05/09/18 12:30 Source: patient, family Exam Limitations: no limitations Patient Subjective Stated Complaint: pt here for vaginal bleeding today at about 0900 this morning, was seen in er yesterday for same thing, pt is 6 weeks 2 days Triage Nursing Assessment: pt walkled in, alert, anxious crying and hyperventing , cramping to lower abd, no fever, pt has small amt of bright red blood on pad, only used one pad today. 1 para 0 Physician History: 22 y/o white female first intrauterine 6weeks 2 day gestation by u/s, returns to ED after yesterdays visit for recurrent vaginal bleeding. pt went home to bed rest yesterday afternoon. this am at 900am pt began with recurrent vaginal bleeding and suprapubic cramping. u/s 05/08/18 reveals a single, live, intrauterine fetus 6week and [address] 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 Timing/Duration: today Activites at Onset: none Quality: cramping Onset Location: suprapubic, vaginal Severity of Pain-Max: mild Severity of Pain-Current: mild Sexual intercourse history: non-contributory Modifying Factors: Improves With: nothing Associated Symptoms: abdominal pain (crampy suprapubic), , vaginal discharge (bleeding) Allergies/Adverse Reactions: Sulfa (Sulfonamide Antibiotics) Allergy (Severe, Verified 11/16/16 16:22) Hives Home Medications: Albuterol Sulfate [Proair Hfa] 1 gm IH UD 06/07/16 [History] Budesonide [Pulmicort Flexhaler] 1 puff DAILY 05/09/18 [History] Hx Tetanus, Diphtheria Vaccination/Date Given: Yes Hx Influenza Vaccination/Date Given: Yes Hx Pneumococcal Vaccination/Date Given: No - Review of Systems Constitutional: No Symptoms Eyes: No Symptoms Ears, Nose, & Throat: No Symptoms Respiratory: No Symptoms Cardiac: No Symptoms Abdominal/Gastrointestinal: Abdominal Pain (mild suprapubic cramping) Genitourinary Symptoms: No Symptoms, Vaginal Bleeding Musculoskeletal: No Symptoms Skin: No Symptoms Neurological: No Symptoms Psychological: No Symptoms Endocrine: No Symptoms Hematologic/Lymphatic: No Symptoms Immunological/Allergic: No Symptoms All Other Systems: Reviewed and Negative - Past Medical History Pertinent Past Medical History: Yes Neurological History: No Pertinent History ENT History: No Pertinent History Cardiac History: No Pertinent History Respiratory History: Asthma Endocrine Medical History: No Pertinent History Musculoskeletal History: No Pertinent History GI Medical History: No Pertinent History History: No Pertinent History Psycho-Social History: No Pertinent History Female Reproductive Disorders: No Pertinent History - Past Surgical History Past Surgical History: Yes Neuro Surgical History: No Pertinent History Cardiac: No Pertinent History Respiratory: No Pertinent History Gastrointestinal: No Pertinent History Genitourinary: No Pertinent History Musculoskeletal: No Pertinent History Female Surgical History: No Pertinent History Other Surgical History: endoscopy. wisdom teeth - Social History Smoking Status: Former smoker How long have you smoked: 2.5 years Exposure to second hand smoke: Yes Drug Use: none Patient Lives Alone: Yes - Female History Hx Last Menstrual Period: mar 20 Hx Now: Yes Expected Date of Delivery: 12/30/18 - Nursing Vital Signs Nursing Vital Signs: Initial Vital Signs Temperature 98.3 F 05/09/18 12:21 Pulse Rate 138 H 05/09/18 12:21 Respiratory Rate 22 05/09/18 12:21 Blood Pressure 130/95 05/09/18 12:21 O2 Sat by Pulse Oximetry 97 05/09/18 12:21 Pain Scale Pain Intensity 3 - Physical Exam General Appearance: mild distress, alert, anxiety Eye Exam: PERRL/EOMI, eyes nml inspection Ears, Nose, Throat Exam: normal ENT inspection, moist mucous membranes Neck Exam: normal inspection, non-tender, supple, full range of motion Respiratory Exam: normal breath sounds, lungs clear, airway intact, No chest tenderness, No respiratory distress, No accessory muscle use, No rhonchi, No wheezing, No stridor Cardiovascular Exam: normal peripheral pulses, tachycardia Gastrointestinal/Abdomen Exam: soft, normal bowel sounds, other (mild suprapubic ) Pelvic Exam: not done (because done yesterday afternoon) Rectal Exam: not done Extremity Exam: normal inspection, normal range of motion, pelvis stable Neurologic Exam: alert, oriented x 3, cooperative, 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 Skin Exam: normal color, warm, dry Lymphatic Exam: No adenopathy SpO2 Interpretation: normal SpO2: 97 Oxygen Delivery: Room Air - Course Nursing assessment & vital signs reviewed: Yes Ordered Tests: Active Orders 24 hr Category Date Time Status IV Insertion STAT Care 05/09/18 12:37 Active OB <14 WKS 1ST GESTATION [US] Stat Exams 05/09/18 12:37 Completed BMP Stat Lab 05/09/18 12:45 Completed CBC W DIFF Stat Lab 05/09/18 12:45 Completed Medication Summary Discontinued Medications Generic Name Dose Route Start Last Admin Trade Name Mira PRN Reason Stop Dose Admin Sodium Chloride 1,000 mls @ 999 mls/hr 05/09/18 12:37 05/09/18 13:03 Sodium Chloride 0.9% 1000 Ml IV 05/09/18 13:37 999 mls/hr .Q1H1M STA Administration Sodium Chloride Confirm 05/09/18 12:58 Sodium Chloride 0.9% 1000 Ml Administered 05/09/18 12:59 Dose 1,000 mls @ ud .ROUTE .STK-MED ONE Lab/Rad Data: Laboratory Result Diagrams 05/09/18 12:45 05/09/18 12:45 Laboratory Results 05/09/18 05/09/18 Range/Units 12:45 12:45 WBC 9.7 (4.0-10.5) K/mm3 RBC 4.59 (4.1-5.4) M/mm3 Hgb 12.8 (12.0-16.0) gm/dl Hct 39.2 (35-47) % MCV 85.4 (78-100) fl MCH 27.9 (26-32) pg MCHC 32.7 (32-36) g/dl RDW 12.9 (11.5-14.0) % Plt Count 302 (150-450) K/mm3 MPV 10.4 H (6-9.5) fl Gran % 59.1 (36.0-66.0) % Eos # (Auto) 0.22 (0-0.5) Absolute Lymphs (auto) 3.02 (1.0-4.6) Absolute Monos (auto) 0.70 (0.0-1.3) Lymphocytes % 31.2 (24.0-44.0) % Monocytes % 7.2 (0.0-12.0) % Eosinophils % 2.3 (0.00-5.0) % Basophils % 0.2 (0.0-0.4) % Absolute Granulocytes 5.73 (1.4-6.9) Basophils # 0.02 (0-0.4) Sodium 139 (137-145) mmol/L Potassium 4.0 (3.5-5.1) mmol/L Chloride 104 (98-107) mmol/L Carbon Dioxide 24 (22-30) mmol/L Anion Gap 15.6 H (5-15) MEQ/L BUN 12 (7-17) mg/dL Creatinine 0.48 L (0.52-1.04) mg/dL Estimated GFR > 60.0 ML/MIN Glucose 82 (74-106) mg/dL Calcium 9.7 (8.4-10.2) mg/dL - Progress Progress: re-examined Progress Note: 05/09/18 14:10 pt very tearful. i called pts ob dr. canales. i reviewed pts hx, condition, lab and u/s results. he recommends expectant care for this miscarriage. pt is to follow up with him in the office tomorrow between 9-12 noon. Blood Culture(s) Obtained: No Antibiotics given: No Discussed with : Other ([facility]-pts ob) Counseled pt/family regarding: lab results, diagnosis, need for follow-up, rad results - Departure Time of Disposition: 14:13 Departure Disposition: Home Clinical Impression: Miscarriage Condition: Stable Critical Care Time: No Referrals: Provider,Unknown [Primary Care Provider] - Additional Instructions: drink plenty of fluids. bed rest tonight. no sexual intercourse. follow up tomorrow at Dr. Canales office between 9am and noon for further management
[2018-05-09] MEDS ORDERED: Sodium Chloride 0.9% 1000 ML 1,000 ML ONE (12:58)
[2018-05-09 13:23] LABS: BASOPHIL % 0.2 % (0.0-0.4); Basophil (Absolute #) 0.02 (0-0.4); Eosinophil % 2.3 % (0.00-5.0); Eosinophil (Absolute #) 0.22 (0-0.5); Granulocyte Absolute (ANC) 5.73 (1.4-6.9); Granulocytes % 59.1 % (36.0-66.0); Hematocrit 39.2 % (35-47); Hemoglobin 12.8 gm/dl (12.0-16.0); Lymphocyte (Absolute #) 3.02 (1.0-4.6); Lymphocytes % 31.2 % (24.0-44.0); Mean Cell Volume 85.4 fl (78-100); Mean Corpuscular Hemoglobin 27.9 pg (26-32); Mean Corpuscular Hgb Concent. 32.7 g/dl (32-36); Mean Platelet Volume 10.4 fl (6-9.5); Monocytes % 7.2 % (0.0-12.0); Platelet Count 302 K/mm3 (150-450); Red Blood Count 4.59 M/mm3 (4.1-5.4); Red Cell Distribution Width 12.9 % (11.5-14.0); White Blood Count 9.7 K/mm3 (4.0-10.5)
[2018-05-09 13:40] LABS: ANION GAP 15.6 MEQ/L (5-15); BLOOD UREA NITROGEN 12 mg/dL (7-17); CHLORIDE 104 mmol/L (98-107); Calcium 9.7 mg/dL (8.4-10.2); Carbon Dioxide 24 mmol/L (22-30); Creatinine 1 0.48 mg/dL (0.52-1.04); Glucose 82 mg/dL (74-106); SODIUM 139 mmol/L (137-145)
--- NOTE | 2018-05-09 13:48 | XRAY ---
Exam: OB ultrasound less than 14 weeks from 05/09/2018. Comparison: OB ultrasound examination less than 14 weeks from 05/08/2018. Indication: The patient is known to be . Prior vaginal bleeding has increased as compared to yesterday. Findings: Transvaginal sagittal and longitudinal images were obtained. I again see a normal oval-shaped gestational sac containing a pole within it. However, the gestational sac is located in a lower position as compared to yesterday's OB ultrasound. This is consistent with a threatened spontaneous . The crown-rump length measures 5.4 mm consistent with a gestational age of 6 weeks 2 days. This is essentially unchanged. The heart rate measures 80 bpm which represents slowing as compared to 05/08/2018 when the heart rate was 99 bpm. A yolk sac is seen within the gestational sac. No abnormal fluid is seen within the cervical canal. There is no free fluid within the cul-de-sac. Both maternal ovaries are identified and again reveal a corpus luteal cyst within the left ovary. No color blood flow images or Doppler images of the maternal ovaries were obtained. Impression: 1. I again see a single live intrauterine fetus. However, the gestational sac is now positioned somewhat lower and is located within the body of the maternal uterus rather than the uterine fundus. Also, the heart rate has decreased from 99 bpm to 80 bpm. These findings are consistent with a threatened spontaneous .
[2018-05-09 14:03] VITALS: BP 110/76; PULSE 101
[2018-05-09] MEDS ORDERED: Ativan 2 MG/1 ML VIAL ONE (14:11)
[2018-05-09 14:14] VITALS: O2SAT 97
[2018-05-09] MEDS ORDERED: Ativan 2 MG/1 ML VIAL IV ONE (14:16)
[2018-05-09 14:58] LABS: Slide Review 1 YES
== END 2018-05-09 14:58 | disposition home or self-care (01) ==
LOC: ED 12:14
DX: O03.9 Complete or unspecified spontaneous abortion without complication (principal)
CPT/HCPCS: 36000; 36415; 76801; 80048; 85025; 96360; 96374; 99284; J2060

== ENCOUNTER 2018-09-06 09:21 | Emergency (ER) | payer BC ==
--- NOTE | 2018-09-06 09:47 | ERPHSYRPT ---
- History of Present Illness Time Seen by Provider: 09/06/18 09:40 Source: patient Exam Limitations: no limitations Patient Subjective Stated Complaint: noticed pink drainage after going to the bathroom this AM rincon hx miscarriage and is scared Triage Nursing Assessment: alert and tearful. states 8 weeks and has had some pink drainage. slight cramping. denies urinary symptoms but states she has to go all the time. she figured it was because she was . has hx miscarrige. Physician History: 23 y/o white female A1 approx 8 weeks presents with mild pink vaginal spotting and suprapubic cramping that began this am. pt had a vaginal ultrasound last week revealing a single live intrauterine fetus. no n/v/d Timing/Duration: today Activites at Onset: none Quality: cramping (mild suprapubic cramping) Onset Location: suprapubic Pain Radiation: none Severity of Pain-Max: mild Severity of Pain-Current: none Prior abdominal problems: none Sexual intercourse history: non-contributory Modifying Factors: Improves With: nothing Associated Symptoms: vaginal discharge (mild pink spotting) Allergies/Adverse Reactions: Sulfa (Sulfonamide Antibiotics) Allergy (Severe, Verified 09/06/18 09:40) Hives Home Medications: Albuterol Sulfate [Proair Hfa] 1 gm IH UD 06/07/16 [History] Budesonide [Pulmicort Flexhaler] 1 puff DAILY 05/09/18 [History] Hx Tetanus, Diphtheria Vaccination/Date Given: Yes Hx Influenza Vaccination/Date Given: Yes Hx Pneumococcal Vaccination/Date Given: No - Review of Systems Constitutional: No Symptoms Eyes: No Symptoms Ears, Nose, & Throat: No Symptoms Respiratory: No Symptoms Cardiac: No Symptoms Abdominal/Gastrointestinal: Abdominal Pain (mild intrauterine spotting) Genitourinary Symptoms: Other (mild vaginal spotting this am) Musculoskeletal: No Symptoms Skin: No Symptoms Neurological: No Symptoms Psychological: No Symptoms Endocrine: No Symptoms Hematologic/Lymphatic: No Symptoms Immunological/Allergic: No Symptoms All Other Systems: Reviewed and Negative - Past Medical History Pertinent Past Medical History: Yes Neurological History: No Pertinent History ENT History: No Pertinent History Cardiac History: No Pertinent History Respiratory History: Asthma Endocrine Medical History: No Pertinent History Musculoskeletal History: No Pertinent History GI Medical History: No Pertinent History History: No Pertinent History Psycho-Social History: No Pertinent History Female Reproductive Disorders: No Pertinent History - Past Surgical History Past Surgical History: Yes Neuro Surgical History: No Pertinent History Cardiac: No Pertinent History Respiratory: No Pertinent History Gastrointestinal: No Pertinent History Genitourinary: No Pertinent History Musculoskeletal: No Pertinent History Female Surgical History: No Pertinent History Other Surgical History: endoscopy. wisdom teeth - Social History Smoking Status: Never smoker How long have you smoked: 2.5 years Exposure to second hand smoke: No Drug Use: none Patient Lives Alone: No - Female History Hx Last Menstrual Period: july 09 Hx Now: Yes - Nursing Vital Signs Nursing Vital Signs: Initial Vital Signs Temperature 98.0 F 09/06/18 09:33 Pulse Rate 82 09/06/18 09:33 Respiratory Rate 18 09/06/18 09:33 Blood Pressure 120/72 09/06/18 09:33 O2 Sat by Pulse Oximetry 100 09/06/18 09:33 Pain Scale Pain Intensity 1 - Physical Exam General Appearance: no apparent distress, alert, anxiety Eye Exam: PERRL/EOMI Ears, Nose, Throat Exam: normal ENT inspection, moist mucous membranes Neck Exam: normal inspection, full range of motion Respiratory Exam: normal breath sounds, lungs clear, airway intact, No chest tenderness, No respiratory distress Cardiovascular Exam: regular rate/rhythm, normal heart sounds, normal peripheral pulses Gastrointestinal/Abdomen Exam: soft, normal bowel sounds, No tenderness, No guarding, No rebound Pelvic Exam: not done Rectal Exam: not done Back Exam: normal inspection, normal range of motion, No CVA tenderness, No vertebral tenderness Extremity Exam: normal inspection, normal range of motion, pelvis stable Neurologic Exam: alert, oriented x 3, cooperative, firepot operator and tender II-XII nml as tested Skin Exam: normal color, warm, dry Lymphatic Exam: No adenopathy SpO2 Interpretation: normal SpO2: 100 O2 Delivery: Room Air Ordered Tests: Active Orders 24 hr Category Date Time Status HCG, Quantitative (Inhouse) Stat Lab 09/06/18 09:50 Completed Urinalysis with Microscopy Stat Lab 09/06/18 09:51 Completed Medication Summary Discontinued Medications Generic Name Dose Route Start Last Admin Trade Name Freq PRN Reason Stop Dose Admin Cephalexin HCl 500 mg 09/06/18 11:13 09/06/18 11:30 Keflex 500 Mg PO 09/06/18 11:14 500 mg STAT ONE Administration Cephalexin HCl Confirm 09/06/18 11:20 Keflex 500 Mg Administered 09/06/18 11:21 Dose 500 mg .ROUTE .STK-MED ONE Lab/Rad Data: Laboratory Results 09/06/18 09/06/18 Range/Units 09:51 09:50 Beta HCG, Quant [id number] mIU/ml Urine Color YELLOW (YELLOW) Urine Appearance SLIGHTLY CLOUDY (CLEAR) Urine pH 6.0 (5-6) Ur Specific [place] 1.023 (1.005-1.025) Urine Protein NEGATIVE (Negative) Urine Ketones NEGATIVE (NEGATIVE) Urine Blood NEGATIVE (0-5) Adria/ul Urine Nitrite NEGATIVE (NEGATIVE) Urine Bilirubin NEGATIVE (NEGATIVE) Urine Urobilinogen 2 (0-1) mg/dL Ur Leukocyte Esterase SMALL (NEGATIVE) Urine WBC (Auto) 3-5 (0-5) /HPF Urine RBC (Auto) NONE (0-2) /HPF U Epithel Cells (Auto) RARE (FEW) /HPF Urine Bacteria (Auto) RARE (NEGATIVE) /HPF Urine Mucus (Auto) SLIGHT (NEGATIVE) /HPF Urine Glucose NEGATIVE (NEGATIVE) mg/dL - Progress Progress: improved, re-examined Air Movement: good Progress Note: 09/06/18 11:53 no further vaginal spotting or abd cramping Blood Culture(s) Obtained: No Antibiotics given: Yes Counseled pt/family regarding: lab results, diagnosis, need for follow-up - Departure Time of Disposition: 12:10 Departure Disposition: Home Clinical Impression: UTI (urinary tract infection), Condition: Stable Critical Care Time: No Referrals: Provider,Unknown [Primary Care Provider] - Additional Instructions: drink plenty of fluids. follow up with primary doctor and automotive engineer for further management Prescriptions: Cephalexin Mh 500 mg [Keflex 500 mg] 500 mg PO TID #21 capsule
[2018-09-06 10:12] LABS: Appearance SLIGHTLY CLOUDY (CLEAR); Bacteria RARE /HPF (NEGATIVE); Bilirubin NEGATIVE (NEGATIVE); Blood NEGATIVE Ery/ul (0-5); Epithelial Cells RARE /HPF (FEW); Glucose NEGATIVE (NEGATIVE); Ketones NEGATIVE (NEGATIVE); Leukocyte Esterase SMALL (NEGATIVE); Mucus SLIGHT /HPF (NEGATIVE); Nitrite NEGATIVE (NEGATIVE); Protein,Urine Dip NEGATIVE (Negative); Specific Gravity 1.023 (1.005-1.025); Urobilinogen 2 mg/dL (0-1)
[2018-09-06] MEDS ORDERED: KEFLEX 500 MG PO ONE (11:13)
[2018-09-06] MEDS ORDERED: KEFLEX 500 MG ONE (11:20)
[2018-09-06 12:18] VITALS: BP 107/57; PULSE 90; O2SAT 99
== END 2018-09-06 12:17 | disposition home or self-care (01) ==
LOC: ED 09:21
DX: O23.41 Unspecified infection of urinary tract in pregnancy, first trimester (principal); Z3A.08 8 weeks gestation of pregnancy; O26.851 Spotting complicating pregnancy, first trimester; R10.9 Unspecified abdominal pain
CPT/HCPCS: 36415; 81001; 84702; 99283; A9270-GY